=== PATIENT | female | born 1965 | race Caucasian/White ===

== ENCOUNTER 2024-12-02 12:37 | Emergency (ER) | payer MEDICARE, MEDICAID, SELFPAY ==
[2024-12-02 12:49] VITALS: BP 142/54; PULSE 88; RESP 18; TEMP 37; O2SAT 96
--- NOTE | 2024-12-02 13:06 | ED.URI ---
HPI - URI/Sore Throat General Chief Complaint: Upper Respiratory Infection Stated Complaint: Cough/Runny Nose Time Seen by Provider: 12/02/24 13:06 History of Present Illness HPI Narrative: 59 y/o female presented for complaining nasal congestion and cough for over 10 days. Endorses shortness of breath with exertion denies chest pain, palpitations, wheezing, nausea vomiting, diarrhea, fevers or lethargy. Patient has been using albuterol inhaler. Related Data Home Medications ?Medication ?Instructions ?Recorded ?Confirmed ?Last Taken ?Type aripiprazole 5 mg tablet 5 mg PO QHS 12/02/24 Unknown History atomoxetine 40 mg capsule 40 mg PO QAM 12/02/24 Unknown History azelastine 0.05 % eye drops 1 drp EACH EYE BID 12/02/24 Unknown History buspirone 10 mg tablet 10 mg PO BID 12/02/24 Unknown History citalopram 20 mg tablet 20 mg PO DAILY 12/02/24 Unknown History diltiazem HCl 300 mg 300 mg PO DAILY 12/02/24 Unknown History capsule,extended release 24 hr lamotrigine 200 mg tablet 200 mg PO Q12H 12/02/24 Unknown History metformin 500 mg tablet 500 mg PO BID 12/02/24 Unknown History metoprolol succinate 100 mg 100 mg PO DAILY 12/02/24 Unknown History tablet,extended release 24 hr mirabegron 50 mg tablet,extended 50 mg PO Q24H 12/02/24 Unknown History release 24 hr (Myrbetriq) omeprazole 40 mg capsule,delayed 40 mg PO DAILY 12/02/24 Unknown History release quetiapine 50 mg tablet,extended 50 mg PO QPM 12/02/24 Unknown History release 24 hr rivaroxaban 20 mg tablet (Xarelto) 20 mg PO QPM 12/02/24 Unknown History Allergies Allergy/AdvReac Type Severity Reaction Status Date / Time latex Allergy Intermediate LOCALIZED Unverified 12/02/24 12:56 RASH--STATES NEEDS POWDER FREE GLOVES--NO PROBLEM Penicillins Allergy Mild Rash Verified 12/02/24 12:56 EMYCIN Allergy Severe RASH, HIVES Uncoded 12/02/24 12:56 POROUS TAPE Allergy Severe BLISTER Uncoded 12/02/24 12:56 REACTION konrad Allergy Severe anaphylacti Uncoded 12/02/24 12:56 c Review of Systems Review of Systems: CONSTITUTIONAL: Denies body aches, fever, chills, or sweats. EYES: Denies visual changes, redness, or discharge. ENT: reports rhinorrhea, congestion,Denies otalgia. CARDIOVASCULAR: Denies chest pain, palpitations, or edema. RESPIRATORY: reports cough Denies dyspnea. GASTROINTESTINAL: Denies abdominal pain, nausea, vomiting, or diarrhea. SKIN: Denies rash MUSCULOSKELETAL: Denies back pain, joint pain, or myalgia. NEUROLOGIC: Denies headache [facility] Past Medical History Medical History (Updated 12/02/24 @ 13:17 by Margarita Durbin, B[employer]) Diabetes Exam Narrative: GENERAL: mildly Ill-appearing, no acute distress. EYES: conjunctivae clear ENT: Mucous membranes moist. Nasal congestion noted. TM pearly solares with normal light reflex bilaterally; no tragal tenderness. Oropharynx not erythematous without lesions. No drooling, no hoarseness, no trismus, uvula midline. No tripod positioning, hot potato voice, or soft palate swelling. NECK: Supple. No lymphadenopathy CHEST: Clear to auscultation, breath sounds equal. No respiratory distress, speaks in full sentences. Occasional cough. HEART: Regular rate and rhythm. No murmur heard. SKIN: Warm, dry, no rash. NEURO: Alert and oriented x3. Course Course Emergency Course: Patient is aware of diagnosis, understands and agrees to treatment plan. Anticipatory guidance given. Patient agrees to follow-up as directed and is aware of reasons to seek care at the emergency department. Portions of this record may have been created with voice recognition software Level of Care: Express Care Visit Vital Signs Vital signs: Vital Signs Temperature 98.6 F 12/02/24 12:49 Pulse Rate 88 12/02/24 12:49 Respiratory Rate 12/02/24 12:49 Blood Pressure 142/54 H 12/02/24 12:49 Pulse Oximetry 96 12/02/24 12:49 Oxygen Delivery Room Air 12/02/24 12:49 Temperature 98.6 F 12/02/24 12:49 Pulse Rate 88 12/02/24 12:49 Respiratory Rate 18 12/02/24 12:49 Blood Pressure 142/54 H 12/02/24 12:49 Pulse Oximetry 96 12/02/24 12:49 Oxygen Delivery Room Air 12/02/24 12:49 MDM - URI/Sore Throat MDM Narrative Medical decision making narrative: discussed physical exam findings consistent with rhinosinusitis, reviewed prescriptions. Patient has an inhaler.. Advise supportive treatments. Patient is appropriate for outpatient treatment and follow-up. Differential Diagnosis Differential diagnosis: Likely upper respiratory infection, viral infection and pharyngitis Discharge Plan Discharge Clinical Impression: Sinusitis Patient Disposition: Home, Self-Care Condition: Stable Instructions: Antibiotic Form, Rhinosinusitis (ED) Additional Instructions: take antibiotic as directed Continue to use the inhaler as previously prescribed Recommendations: Flonase spray and Zyrtec (or Claritin/Stephani) over the counter Cough syrup may cause drowsiness; avoid driving or take it at night time. Tylenol 1000mg every 8 hours as needed for pain Symptomatic treatment includes: rest, fluids, and increase humidity of the air at home. Follow up with your primary care provider in 1 week. Go to the ER for worsening symptoms or concerns. Patient Language: [place]i Prescriptions: New methylprednisolone [Medrol (Brain)] 4 mg tablets,dose pack See Rx Instructions .ROUTE .COMPLEX Qty: 21 0RF Rx Instructions: orally per package directions doxycycline hyclate 100 mg tablet 100 mg PO BID 7 Days Qty: 14 0RF Follow-up/Referrals: Safia,Maulik Parker MD [Primary Care Provider] - Time of Disposition: 13:16
== END 2024-12-02 13:18 | disposition home or self-care (01) ==
PROVIDERS: Emergency Provider Nurse Practitioner Family; PCP Internal Medicine
DX: J32.9 Chronic sinusitis, unspecified (principal); E11.9 Type 2 diabetes mellitus without complications
CPT/HCPCS: 99203; G0463